=== PATIENT | male | born 1940 | race Caucasian/White ===

== ENCOUNTER 2018-08-30 13:09 | Inpatient (IN) | payer MEDICARE, OTHER ==
[2018-08-30 15:04] LABS: CKMB 3.9 ng/mL (0-6.6)
[2018-08-30] MEDS ORDERED: Digoxin 0.5 MG/2 ML AMP ONE (17:00)
[2018-08-30 17:57] LABS: Troponin I 0.047 ng/mL (< 0.028)
[2018-08-30] MEDS ORDERED: niCARdipine HCl 25 MG in Sodium Chloride 0.9% 250 ML 240 ML IVPB SCH (21:30)
[2018-08-30] MEDS ORDERED: Diltiazem HCl 125 MG, Admixture Fee 1 EACH in Sodium Chloride 0.9% 100 ML IVPB SCH (21:45)
--- NOTE | 2018-08-30 22:26 | HP ---
CHIEF COMPLAINT: Not feeling well. HISTORY OF PRESENT ILLNESS: The patient is a 78-year-old male with a history of atrial flutter with prior ablation, who subsequently had recurrence of atrial fibrillation. He is followed by Dr. Younger and the plan was for him to undergo outpatient ablation tomorrow. The patient was to taper off his Multaq, atenolol, and Eliquis in preparation. However, subsequently, the patient had recurrence of his atrial fibrillation, which he could tell because he just did not feel well and had some discomfort in his back, which has been typical for him. He says he feels generally better at this moment, does not have significant problems. He denies any chest pain or shortness of breath. Denies any fevers or chills. REVIEW OF SYSTEMS: All other systems were reviewed and all pertinent positives and negatives noted in history of present illness. PAST MEDICAL HISTORY: Coronary artery disease, atrial fibrillation, hyperlipidemia, hypertension, and CHF. PAST SURGICAL HISTORY: Atrial flutter ablation, carpal tunnel release on the right, appendectomy, CABG with one vessel bypass, and back surgery. FAMILY HISTORY: Father and mother both in their 90s of pneumonia. SOCIAL HISTORY: The patient has a history of smoking, but is reformed. He has 1 to 2 beers several times a week. ALLERGIES: NONE. MEDICATIONS: 1. Simvastatin 80 mg daily. 2. Atenolol 25 daily. 3. Eliquis 2.5 b.i.d. 4. Multaq 400 mg b.i.d. Of note, the Multaq, Eliquis, and atenolol have been held. PHYSICAL EXAMINATION: VITAL SIGNS: BP 130/98, pulse 123, respirations 17, O2 saturation 98% on room air. On monitor the patient's heart rate goes from 90s to 150s. GENERAL APPEARANCE: Age-appropriate male, in no distress. He is awake, alert, oriented, pleasant, and cooperative. HEART: Irregular with variable rates. Does have 1/6 murmur at the left sternal border. LUNGS: Clear to auscultation bilaterally with good chest wall expansion and air exchange. ABDOMEN: Soft, nontender, and nondistended. Positive bowel sounds. No masses. No organomegaly. EXTREMITIES: Warm and dry with 2+ pitting at the ankles only. NEUROLOGIC: The patient is fully intact, awake, moves all extremities spontaneously. He has normal sensation. PSYCHIATRIC: The patient has normal affect and behavior. LABORATORY DATA: White count 12.3, hemoglobin 13.3, and platelets 159. Sodium 137, potassium 4.5, chloride 107, CO2 of 19, BUN 24, creatinine 1.99, estimated GFR 33, glucose 130, lactic acid 1.5, calcium 9.3, AST is 21, ALT 15, troponin less than 0.01 x 2. Albumin is 3.9. TSH 2.4929. Chest x-ray, no evidence of acute cardiopulmonary disease. IMPRESSION AND PLAN: 1. Atrial fibrillation with rapid ventricular response. The patient had good control with Multaq and atenolol, but those have been discontinued in anticipation of ablation for tomorrow. We will add some digoxin for better rate control. Presently, he is tolerating it well and his blood pressure is remaining stable. We will place in IMCU on the Cardizem drip. We will consult Dr. Younger for possible ablation tomorrow. 2. Chronic kidney disease stage IIIB, appears to be stable at his baseline numbers. We will continue to trend. 3. Slight elevation of troponin, likely demand ischemia secondary to the tachycardia. We will continue to trend. 4. History of coronary artery disease, stable. 5. Hyperlipidemia. Continue with simvastatin. Job ID: [id number]
[2018-08-30] MEDS ORDERED: Diltiazem 125 MG in Sodium Chloride 0.9% 100 ML IVPB SCH (22:45)
[2018-08-31 00:35] VITALS: BMI 30.3
--- NOTE | 2018-08-31 12:12 | OP ---
DATE OF PROCEDURE: 08/31/2018 PROCEDURE PERFORMED: Electrophysiology study and radiofrequency ablation. ADDITIONAL REFERRING PHYSICIAN: Dr. Chelsea Baker. REASON FOR PROCEDURE: Jose is a 78-year-old male with prior history of coronary artery disease, bypass grafting, diabetes, hypertension, paroxysmal atrial fibrillation, history of typical atrial flutter, post CTI ablation in the past. He is here for re-ablation of his atrial arrhythmias, hence history of recurrence even on Multaq. DESCRIPTION OF PROCEDURE: The patient received propofol by Anesthesia specialist. After adequate level of sedation achieved, the left and right femoral veins were prepped, draped, and anesthetized using subcutaneous lidocaine and under ultrasound guidance, both femoral veins were cannulated x2 on the left. An 11-[place]an sheath was used to advance an intracardiac echo probe, which was used to monitor transseptal procedure and to rule out pericardial effusion throughout the case. Also through the left access, a Preface sheath was advanced to the inferior vena cava, which was used later to advance a DuoDeca probe into the right atrium and CS position. On the right side, two 8-[place]an short sheaths were introduced. Initially, a ThermoCool SFST catheter was advanced to the right atrium. Right atrial map was obtained, and basic EP study was performed. The His bundle, CS os, SVC IVC areas, and cavotricuspid isthmus were well delineated. Following numerical findings were found. Basic sinus rhythm at 1093 milliseconds, NC 180, QRS 74, QT 438, AH 94 milliseconds, HV 54 milliseconds. AV Wenckebach cycle length was 380 milliseconds. Burst atrial pacing initially did not induce flutter, but at later time after ablation, we were able to induce typical isthmus dependent appearing flutter. At this point, remapping of the cavotricuspid isthmus was performed during proximal CS pacing and a reconnection was re-ablated. The transisthmus time was increased to 140 milliseconds with longest transisthmus time was adjacent to the ablation line suggestive of cavotricuspid isthmus block. At this point, the ThermoCool SFST catheter was removed and the short sheaths were exchanged to SL1 transseptal sheaths. They were used to perform transseptal punctures under cine/intracardiac echo monitoring. IV heparin was started at this point to maintain ACT over 350 throughout the case. Through the SL1 sheath, a 20-pole deflectable Lasso catheter and a ThermoCool SFST catheter were advanced to the left atrium. Left atrial 3D map was obtained, and pulmonary venous isolation procedure was performed successfully isolating all 4 pulmonary veins. The posterior wall also isolated. Throughout the case, an esophageal temperature probe was used to monitor esophagus temperatures to avoid excessive heating. With burst atrial pacing maneuvers elicited atypical appearing atrial flutters, but they were shortly self-terminated. The Isuprel was administered, and reconnections were ablated. The total ablation was 33, lesions delivered over 16 minutes and 4 seconds at 40 briggs. Intracardiac echo and cardiac silhouette were not suggestive of significant pericardial effusion. The sheaths were pulled to the right side, and the cavotricuspid isthmus line was again rechecked, and reconnection was re-ablated. At this point, the sheaths were removed in the cardiac cath technologist. The heparin was reversed, and the patient tolerated the procedure well. No complications noted. CONCLUSION: 1. Successful pulmonary venous isolation procedure isolating the posterior wall of all 4 pulmonary veins. 2. Successful re-ablation of the cavotricuspid isthmus. PLAN: Routine postop care. Resume anticoagulants. Stop Multaq and monitor for recurrent arrhythmias. Job ID: [id number] [facility]
[2018-08-31] MEDS ORDERED: Acetaminophen/Codeine 30-300mg Tablet PO PRN ×2 (13:15)
--- NOTE | 2018-08-31 15:42 | CON ---
DATE OF CONSULTATION: 08/31/2018 HISTORY OF PRESENT ILLNESS: I am seeing Mr. Garcia at our [facility] Step-down ICU as an Electrophysiology technology consultant. His problems are; 1. Recurrent atrial arrhythmias. a. Remote history of cavotricuspid isthmus ablation on August 30, 2015, for typical atrial flutter. b. Recurrent atrial flutter requiring Multaq suppression. 2. History of coronary artery disease, prior bypass grafting surgery. a. History of preserved LVEF by 2D echo on 02/28/2016, EF 55% to 60%, mild MR and TR, diastolic dysfunction. 3. History of chronic kidney disease. 4. History of lymphoma. 5. History of chronic back pain status post back surgery. 6. History of hypertension. 7. History of type 2 diabetes. 8. Hyperlipidemia. 9. CHADS-VASc score of 5 with age, hypertension, diabetes, and coronary vascular disease on Eliquis therapy. ALLERGIES: NONE. MEDICATIONS: At home include; 1. Multaq 400 mg twice a day, now on hold for a week. 2. Eliquis 5 mg twice a day. 3. Amlodipine 5 mg daily. 4. Atenolol 50 mg twice a day. 5. Simvastatin 80 mg daily. 6. Aspirin 81 mg daily. SUBJECTIVE: Mr. Garcia is here with recurrent palpitations. They started about 2 days back. He has been off his Multaq for a while. His heart rates were elevated and hence, he came to the ER. He is on diltiazem drip. He is feeling better now. His rhythm actually spontaneously converted back to sinus rhythm. OBJECTIVE DATA: VITAL SIGNS: Blood pressure 143/69, heart rate 93, respirations 12, and temperature 98.9 degrees Fahrenheit. PHYSICAL EXAMINATION: GENERAL: Alert and oriented man, in no apparent distress. NECK: Supple. Jugular veins not distended. CHEST: Coarse without crackles. HEART: Sounds are regular to rate and rhythm. No murmur or gallop. ABDOMEN: Benign. Bowel sounds positive. EXTREMITIES: Lower extremities without edema, clubbing, or cyanosis. Midsternal scar is appreciated. NEUROLOGIC: The patient is nonfocal. MUSCULOSKELETAL: Without joint swelling or deformity. SKIN: Without rash. DATABASE: EKG is reviewed revealing an atrial flutter with typical features, but also atypical features as well, 2:1 AV conduction. LABORATORY DATA: White cell count is 12.3, hemoglobin 13.3, and platelet count are 159. INR 1.0 and D-dimer 1.24. Sodium 137, potassium 4.8, BUN is 26, and creatinine 1.99. The AST and ALT are 25 and 15. Troponin I 0.07. ASSESSMENT AND PLAN: Mr. Garcia is a 78-year-old man with prior history of coronary artery disease, bypass surgery, preserved LV function, recurrent atrial arrhythmias, had prior flutter ablation by Dr. Meng, but now has recurrent somewhat typical appearing atrial flutter, previously suboptimally suppressed with Multaq. I have seen this gentleman in the office for evaluation, further ablated arrhythmias. In fact, he is scheduled to have this procedure done as an outpatient by our plans today. Now, he had recurrent atrial arrhythmias, likely related to holding antiarrhythmic regimen prior to the ablation. I think it is reasonable to consider proceeding with the ablation therapy as ordered. Plan, we will schedule him as planned. We will follow with you. Thank you again for allowing me to participate in the care of this patient. Job ID: [id number]
[2018-08-31] MEDS ORDERED: Metoclopramide HCl 10 MG/2 ML VIAL ONE (17:03)
[2018-08-31] MEDS ORDERED: Ondansetron PF 4 MG/2 ML Vial ONE (17:03)
[2018-08-31] MEDS ORDERED: Lidocaine 1% PF 5 ML VIAL ONE (17:03)
[2018-08-31] MEDS ORDERED: PROPOFOL 200 MG/20 ML VIAL ONE (17:03)
[2018-08-31] MEDS ORDERED: Rocuronium Bromide 10 MG/ML (10ML VIAL) ONE (17:03)
[2018-08-31] MEDS ORDERED: PHENYLEPHRINE-NS 100 MCG/ML 10 ML SYRINGE ONE (17:03)
[2018-08-31] MEDS: Apixaban 5 MG TAB PO SCH (18:17)
--- NOTE | 2018-08-31 18:43 | PDOC.PN ---
- Subjective Encounter Start Date: 08/31/18 Encounter Start Time: 18:41 Subjective: S/p repeat ablation for atrial fib/flutter recurrence. Feeling better. -: Denied any new problem - Objective Vital Signs & Weight: Vital Signs (12 hours) Temp Resp 08/31/18 16:00 97.7 F 08/31/18 12:49 97.2 F L 08/31/18 08:00 12 08/31/18 07:20 98.9 F Weight Weight 211 lb 3.2 oz Most Recent Monitor Data Heart Rate from ECG 89 NIBP 166/73 NIBP BP-Mean 104 Respiration from ECG 19 SpO2 92 I&O: 08/30/18 08/31/18 09/01/18 06:59 06:59 06:59 Intake Total 24.5 Output Total 450 Balance -425.5 Phys Exam - Physical Examination HEENT: PERRLA, moist MMs Neck: no JVD, supple, full ROM fair air entry bilaterally with no obvious crackles or rhonchi Regular rhythm but tachycardic Gastrointestinal: soft, non-tender, no distention, positive bowel sounds Musculoskeletal: no edema, pulses present Neurological: non-focal, moves all 4 limbs Psychiatric: normal affect, A&O x 3 Dx/Plan (1) Generalized weakness Code(s): R53.1 - WEAKNESS Status: Acute (2) CAD (coronary artery disease) Code(s): I25.10 - ATHSCL HEART DISEASE OF [place] CORONARY ARTERY W/O ANG PCTRS Status: Acute (3) Paroxysmal atrial fibrillation with RVR Code(s): I48.0 - PAROXYSMAL ATRIAL FIBRILLATION Status: Acute (4) HTN (hypertension) Code(s): I10 - ESSENTIAL (PRIMARY) HYPERTENSION Status: Acute (5) Atrial fibrillation Code(s): I48.91 - UNSPECIFIED ATRIAL FIBRILLATION Status: Acute - Plan Continue beta kathryn and chronic anticoagulation -: Get CBC and BMP in the am. * .
--- NOTE | 2018-08-31 20:46 | EKG ---
Test Reason : POST ABLATION Blood Pressure : / mmHG Vent. Rate : 072 BPM Atrial Rate : 072 BPM P-R Int : 182 ms QRS Dur : 092 ms QT Int : 424 ms P-R-T Axes : 062 049 126 degrees QTc Int : 464 ms Normal sinus rhythm Prolonged QT Abnormal ECG When compared with ECG of 30-AUG-2018 22:26, (Unconfirmed) QT has lengthened Confirmed by DR. Estephania CHANEL ([id number]) on 08/31/2018 8:45:39 PM Referred By: LATONIA Confirmed By:DR. Estephania CHANEL
[2018-08-31] MEDS ORDERED: Atorvastatin Calcium 40 MG TAB PO SCH (21:00)
[2018-09-01 05:58] LABS: #Basophils 0.1 thou/uL (0.0-0.2); #Eosinphils 0.3 thou/uL (0.0-0.7); #Monocytes 1.2 thou/uL (0.11-0.59); #Neutrophils 6.7 thou/uL (1.40-6.50); %Basophils 0.6 % (0.0-1.0); %Eosinophils 2.2 % (0.0-10.0); %Lymphocytes 37.8 % (21.0-51.0); %Monocytes 9.1 % (0.0-10.0); %Neutrophils 50.4 % (42.0-75.0); Hemoglobin 11.9 g/dL (14.0-18.0); Mean Corpuscular HGB CONC 29.6 g/dL (32.0-36.0); Mean Corpuscular Hemoglobin 26.2 pg (27.0-31.0); Mean Corpuscular Volume 88.4 fL (78.0-98.0); Mean Platelet Volume 7.5 fL (7.4-10.4); Platelet Count 171 thou/uL (130-400); RBC Distribution Width 13.5 % (11.5-14.5); Red Blood Cell (RBC) Count 4.55 mill/uL (4.70-6.10); White Blood Cell (WBC) Count 13.4 thou/uL (4.8-10.8)
[2018-09-01 06:07] LABS: Anion Gap 9 mmol/L (10-20); BUN (Urea Nitrogen) 19 mg/dL (8.4-25.7); Calc. Creatinine Clearance 53 mL/min (70-130); Calcium 8.4 mg/dL (7.8-10.44); Carbon Dioxide 24 mmol/L (23-31); Chloride 107 mmol/L (98-107); Estimated GFR-MDRD 42; Glucose 123 mg/dL (83-110); Magnesium 1.7 mg/dL (1.6-2.6); Potassium 4.3 mmol/L (3.5-5.1); Sodium 136 mmol/L (136-145)
[2018-09-01] MEDS ORDERED: Aspirin 81 mg Enteric Coated Tablet PO SCH (09:00)
[2018-09-01] MEDS ORDERED: Atenolol 25 MG TAB PO SCH (09:00)
[2018-09-01] MEDS ORDERED: Magnesium 2 GM/50 ML 2 GM in Premix Bag 1 BAG IVPB SCH (09:00)
[2018-09-01] MEDS: Apixaban 5 MG TAB PO SCH (09:15)
[2018-09-01] MEDS ORDERED: Amlodipine 5 MG TAB PO SCH (09:30)
[2018-09-01 10:40] VITALS: BP 153/69
[2018-09-01 15:24] VITALS: TEMP 99
--- NOTE | 2018-09-01 18:13 | DIS ---
DATE OF ADMISSION: 08/30/2018 DATE OF DISCHARGE: 09/01/2018 DISCHARGE DIAGNOSES: 1. Recurrent atrial arrhythmias. 2. Palpitations. 3. Coronary artery disease, status post coronary artery bypass grafting. 4. Chronic kidney disease, stage 3. 5. Hypertension. 6. Type 2 diabetes mellitus. 7. Hyperlipidemia. 8. Chronic anticoagulation with Eliquis. CONSULT: Cupola Worker. HOSPITAL COURSE: This is a 78-year-old male with prior history of atrial flutter, status post ablation, who presented with acute onset of palpitations and ill feeling. The patient was found to have atrial fibrillation. Cupola Worker was consulted and the patient subsequently had successful ablation. Postprocedure observation was unremarkable and the patient remained in normal sinus rhythm. He was later discharged home to follow up with the continuing education instructor. He also complained of heartburn, for which he was prescribed antiacids. Of note, Multaq was discontinued and the patient was continued on atenolol. PHYSICAL EXAMINATION: VITAL SIGNS: Temperature 99, pulse 79, respiratory rate 23, BP 155/66, SpO2 of 95% on room air. GENERAL: Elderly male, in no obvious distress. Afebrile, anicteric, acyanotic. HEENT: Normocephalic, atraumatic. Oral mucosa is moist. RESPIRATORY: Good air entry bilaterally with no obvious crackle or rhonchi. CARDIOVASCULAR: Regular rhythm and rate with normal heart sounds one and two. GI: Abdomen is obese, soft, nontender, nondistended with normal bowel sounds. EXTREMITIES: Grossly normal looking and atraumatic with no edema or erythema. NEUROLOGIC: Conscious and alert, oriented x3 with appropriate mental status. Cranial nerves 2 through 12 are intact. The patient is ambulant. DISCHARGE MEDICATIONS: 1. Amlodipine 5 mg daily. 2. Eliquis 5 mg b.i.d. 3. Aspirin 81 mg daily. 4. Simvastatin 80 mg daily. 5. Atenolol 25 mg b.i.d. 6. Protonix 40 mg daily. 7. Sucralfate 1 tablet q.i.d. for 14 days. CONDITION AT DISCHARGE: Good. This discharge took more than 30 minutes. Job ID: [id number]
[2018-09-02] MEDS ORDERED: Amlodipine 5 MG TAB PO SCH (09:00)
== END 2018-09-01 15:40 | disposition home or self-care (01) | DRG 274 ==
LOC: ERS 13:09 → ERHOLD 20:46 → IMCU/EMU 23:30
PROVIDERS: ADMIT Internal Medicine; ATTEND Internal Medicine
PROC: 02583ZZ Destruction of Conduction Mechanism, Percutaneous Approach (ICD-10-PCS; principal; 2018-08-31)
DX: I48.0 Paroxysmal atrial fibrillation (principal); N18.3 Chronic kidney disease, stage 3 (moderate); I25.10 Atherosclerotic heart disease of native coronary artery without angina pectoris; E78.5 Hyperlipidemia, unspecified; I12.9 Hypertensive chronic kidney disease with stage 1 through stage 4 chronic kidney disease, or unspecified chronic kidney disease; E11.22 Type 2 diabetes mellitus with diabetic chronic kidney disease; Z85.72 Personal history of non-Hodgkin lymphomas; Z95.1 Presence of aortocoronary bypass graft; Z79.01 Long term (current) use of anticoagulants
CPT/HCPCS: 36415; 76942; 80048; 82553; 83735; 85025; 85347; 93005; 93010; 93613; 93622; 93623; 93655; 93656; 93662; 94760; 96365; 96375; C1730; C1731; C1732; C1759; C1769; J1160; J2001; J2405; J2704; J2765; J3475; J7050

== ENCOUNTER 2018-10-21 19:36 | Inpatient (IN) | payer MEDICARE, OTHER ==
[2018-10-21] MEDS ORDERED: Digoxin 0.5 MG/2 ML AMP ONE (21:21)
[2018-10-21] MEDS ORDERED: Ondansetron PF 4 MG/2 ML Vial IVP PRN ×2 (22:26→22:30)
[2018-10-21] MEDS ORDERED: Ondansetron ODT 4 MG TAB SL PRN (22:26)
[2018-10-21] MEDS ORDERED: Calcium Carbonate 500 MG ChewTAB PO PRN (22:30)
[2018-10-21] MEDS ORDERED: Bisacodyl 10 MG SUPP PR PRN (22:30)
[2018-10-21] MEDS ORDERED: Ondansetron ODT 4 MG TAB PO PRN (22:30)
[2018-10-21] MEDS ORDERED: Bisacodyl 5 MG TAB PO PRN (22:30)
[2018-10-21] MEDS ORDERED: Zolpidem Tartrate 5 MG TAB PO PRN (22:30)
[2018-10-21] MEDS ORDERED: HYDROcodone/Acetaminophen 5/325 mg Tablet PO PRN (22:30)
[2018-10-21] MEDS ORDERED: Loperamide HCl 2 MG CAP PO PRN (22:30)
[2018-10-21] MEDS ORDERED: Acetaminophen 325 MG TAB PO PRN (22:30)
[2018-10-21] MEDS ORDERED: Diltiazem 125 MG in Sodium Chloride 0.9% 100 ML IVPB SCH (22:45)
--- NOTE | 2018-10-21 22:54 | HP ---
PRIMARY CARE PHYSICIAN: Dr. Ly. REASON FOR ADMISSION: Transferred from [facility] for atrial fibrillation with RVR. HISTORY OF PRESENT ILLNESS: A 78-year-old male who was admitted in our hospital in August of this year. At that time, he was diagnosed with atrial fibrillation with RVR and the patient underwent electrophysiologic study and radiofrequency ablation for atrial fibrillation. Since then up until today, the patient did not have any problem. He went to [facility] today with palpitation and feeling mild shortness of breath. He did not have any chest pain, orthopnea, or PND. He was in atrial fibrillation with RVR and that is why Cardizem drip was started. His heart rate remained in 130s and that is why he was sent to our hospital for further evaluation and treatment. Subsequently, he was admitted to [facility]. He denies any fever, chills, UTI symptoms, hyperthyroid symptoms. He denies any constipation, diarrhea, melena, or hematochezia. REVIEW OF SYSTEMS: CONSTITUTIONAL: Negative for weight loss or gain, ability to conduct usual activities. SKIN: Negative for rash, itching. EYES: Negative for double vision, pain. ENT/MOUTH: Negative for nose bleeding, neck stiffness, pain, tenderness. CARDIOVASCULAR: Negative for palpitations, dyspnea on exertion, orthopnea. RESPIRATORY: Negative for shortness of breath, wheezing, cough, hemoptysis, fever or night sweats. GASTROINTESTINAL: Negative for poor appetite, abdominal pain, heartburn, nausea, vomiting, constipation, or diarrhea. GENITOURINARY: Negative for urgency, frequency, dysuria, nocturia. MUSCULOSKELETAL: Negative for pain, swelling. NEUROLOGIC/PSYCHIATRIC: Negative for anxiety, depression. ALLERGY/IMMUNOLOGIC: Negative for skin rash, bleeding tendency. Please see my HPI for pertinent positives and negatives. All other review of systems reviewed and negative except as mentioned in HPI. PAST MEDICAL HISTORY: Coronary artery disease, chronic diastolic heart failure, atrial fibrillation, hypertension, and dyslipidemia. PAST SURGICAL HISTORY: Atrial flutter ablation, atrial fibrillation ablation, carpal tunnel release on the right, appendicectomy, CABG, back surgery. PAST PSYCHIATRIC HISTORY: Reviewed and negative. CURRENT HOME MEDICATIONS: 1. Amlodipine 5 mg daily. 2. Aspirin 81 mg daily. 3. Zocor 80 mg p.o. at bedtime. 4. Eliquis 5 mg b.i.d. 5. Tenormin 25 mg b.i.d. 6. Protonix 40 mg daily. 7. Sucralfate 1 g q.i.d. FAMILY HISTORY: Father and mother both in their 90s from pneumonia. SOCIAL HISTORY: The patient is . He has remote history of smoking. He drinks beer occasionally. ALLERGIES: NO KNOWN DRUG ALLERGY. EMERGENCY ROOM COURSE: The patient is started on Cardizem drip. PHYSICAL EXAMINATION: VITAL SIGNS: Currently, blood pressure 132/95, pulse 136, respiratory rate 20, temperature 98.0, saturation 100% on room air. Weight 97 kg. GENERAL: The patient is currently alert and oriented x3. No obvious acute distress. HEENT: Head; normocephalic, atraumatic. Eyes; pupils round, reactive to light. Extraocular muscle intact. ENT: Oropharynx within normal limits. Moist mucous membranes. No oral lesion. No pharyngeal erythema. No exudate. NECK: Supple. No JVD. No thyromegaly. No carotid bruit. No jugular venous distention. LUNGS: Clear to auscultation without any rhonchi or rales. CARDIAC: S1 and S2, irregularly irregular. No murmur. No gallop. No rub. ABDOMEN: Obesity present. Bowel sounds present. Nontender. Nondistended. No organomegaly. No mass. No suprapubic tenderness. BACK: Unremarkable. No CVA tenderness. EXTREMITIES: Upper extremities, passive movement of all joints are normal. Lower extremities, no edema. Good distal pulsation. SKIN: No skin rash. HEMATOLOGICAL SYSTEM: No lymphadenopathy. PSYCHIATRIC: Normal affect. SIGNIFICANT LABORATORY DATA: Chest x-ray based on my review, increased density at the right base, atelectasis. CBC; WBC 13.0, hemoglobin 13.8, platelet 195. BMP; sodium 132, potassium 4.2, chloride 102, carbon dioxide 17, BUN 29, creatinine 1.80, glucose 137, calcium 9.1. LFTs; AST 20, ALT 12, alkaline phosphatase 183, albumin 3.9. Troponin 0.066, then 0.120. BNP 536.5. EKG showing atrial fibrillation with RVR. ASSESSMENT AND PLAN: 1. Atrial fibrillation with rapid ventricular response. The patient has chronic paroxysmal atrial fibrillation. He required ablation procedure last time. We will continue with Cardizem drip for rate control and consult pressfitter tomorrow. We will obtain echocardiography to assess EF and other structural abnormality. 2. Elevated troponin. The patient had elevated troponin during previous admission as well, most likely related to demand ischemia from atrial fibrillation with rapid ventricular response, could be considered as a non-ST elevation myocardial infarction type 2. An echocardiography will be obtained and we will continue with aspirin 81 mg p.o. daily. 3. Chronic anticoagulation. The patient has high CHADS2 score. We will continue Eliquis 5 mg p.o. b.i.d. 4. Hypertension. If blood pressure permits, then we will continue amlodipine 5 mg p.o. daily. Currently, he is on Cardizem drip as well. 5. Chronic kidney disease, stage 3. We will monitor renal function. Repeat labs tomorrow. 6. Chronic diastolic heart failure. The patient appears currently euvolemic. 7. Right basilar atelectasis. Incentive spirometry advised. 8. Deep venous thrombosis prophylaxis not needed because the patient will be on chronic anticoagulation therapy. 9. GI prophylaxis, Protonix 40 mg p.o. daily. 10. Code status. The patient is full code. The patient's is surrogate decision maker. 11. Dyslipidemia. Continue Zocor as per home dosage. Plan of care discussed with the patient and family member at bedside. Job ID: [id number]
[2018-10-22 00:47] LABS: Troponin I 0.131 ng/mL (< 0.028)
[2018-10-22 05:02] LABS: Anion Gap 13 mmol/L (10-20); BUN (Urea Nitrogen) 28 mg/dL (8.4-25.7); Calc. Creatinine Clearance 46 mL/min (70-130); Carbon Dioxide 21 mmol/L (23-31); Chloride 107 mmol/L (98-107); Estimated GFR-MDRD 37; Glucose 102 mg/dL (83-110); Potassium 4.4 mmol/L (3.5-5.1); Sodium 137 mmol/L (136-145)
[2018-10-22 05:05] LABS: Band 1 % (5-11); Eosinophils 4 % (0-10); Hemoglobin 13.4 g/dL (14.0-18.0); Lymphocytes 49 % (21-51); MDiff Complete? YES; Mean Corpuscular Hemoglobin 28.3 pg (27.0-31.0); Mean Corpuscular Volume 88.4 fL (78.0-98.0); Mean Platelet Volume 7.9 fL (7.4-10.4); Monocytes 6 % (0-10); Neutrophil 36 % (42-75); Platelet Count 181 thou/uL (130-400); RBC Distribution Width 13.6 % (11.5-14.5); Reactive Lymphocytes 4 % (0-10); Red Blood Cell (RBC) Count 4.74 mill/uL (4.70-6.10); White Blood Cell (WBC) Count 11.7 thou/uL (4.8-10.8)
[2018-10-22] MEDS: Apixaban 5 MG TAB PO SCH ×2 (09:47→21:08)
[2018-10-22] MEDS: Aspirin Chewable 81 MG TAB PO SCH (09:47)
[2018-10-22] MEDS: Dronedarone HCl 400 MG TAB PO SCH ×2 (09:51→21:08)
[2018-10-22] MEDS ORDERED: Lidocaine 1% PF 5 ML VIAL ONE (14:53)
[2018-10-22] MEDS ORDERED: PROPOFOL 200 MG/20 ML VIAL ONE (14:53)
--- NOTE | 2018-10-22 17:08 | OP ---
DATE OF PROCEDURE: 10/22/09 SURGEON: Chelsea Baker M.D. PROCEDURE: Cardioversion DATE OF PROCEDURE: 09/01/18 INDICATION FOR PROCEDURE: This is a 78-year-old gentleman who is admitted with atrial flutter with a rapid ventricular response . Heart rate was in the 140s to 150s. He was advised to undergo electrical cardioversion. He had been started on Multaq this morning 400 mg b.i.d. He was on IV Diltiazem. The Diltiazem was stopped. CARDIOVERSION The patient was given short acting propofol anesthesia and using one attempt at 70 joules, the patien t was successfully converted back to normal sinus rhythm with a heart rate in the 60s. He had been ta [facility] for some time prior to the procedure and no LORRAINE was performed. No difficulties or compli cations encountered.
--- NOTE | 2018-10-22 19:02 | PDOC.PN ---
- Subjective Encounter Start Date: 10/22/18 Encounter Start Time: 09:20 Pt seen for followup re: a. fib with RVR. Denies chest pain, shortness of breath, fevers or chills. - Objective Resuscitation Status - Order Detail: 10/21/18 22:30 Resuscitation Status Routine Resuscitation Status: FULL: Full Resuscitation Vital Signs & Weight: Vital Signs (12 hours) Temp Pulse Pulse Ox 10/22/18 15:23 96.5 F L 10/22/18 10:37 98.7 F 10/22/18 10:00 144 H 10/22/18 09:40 100 Weight Weight 207 lb Most Recent Monitor Data Heart Rate from ECG 67 NIBP 141/58 NIBP BP-Mean 85 Respiration from ECG 18 SpO2 99 I&O: 10/21/18 10/22/18 10/23/18 06:59 06:59 06:59 Intake Total 240 Output Total 1400 Balance -1160 Result Diagrams: 10/22/18 04:02 10/22/18 04:02 Phys Exam - Physical Examination Constitutional: NAD HEENT: moist MMs Neck: supple Respiratory: clear to auscultation bilateral Cardiovascular: irregular S1, S2, tachy Gastrointestinal: soft, non-tender Neurological: moves all 4 limbs Psychiatric: normal affect, A&O x 3 Dx/Plan (1) Paroxysmal atrial fibrillation with RVR Code(s): I48.0 - PAROXYSMAL ATRIAL FIBRILLATION Status: Acute Comment: For cardioversion today (2) HTN (hypertension) Code(s): I10 - ESSENTIAL (PRIMARY) HYPERTENSION Status: Chronic Comment: controlled (3) Dyslipidemia Code(s): E78.5 - HYPERLIPIDEMIA, UNSPECIFIED Status: Chronic Comment: continue statin - Plan * . Review of Systems - Review of Systems Cardiovascular: negative: chest pain, palpitations, orthopnea, paroxysmal nocturnal dyspnea, edema, light headedness Gastrointestinal: negative: Nausea, Vomiting, Abdominal Pain, Diarrhea, Constipation, Melena, Hematochezia - Medications/Allergies Allergies/Adverse Reactions: Allergies Allergy/AdvReac Type Severity Reaction Status Date / Time No Known Drug Allergies Allergy Verified 10/22/18 02:43 Medications: Current Medications Acetaminophen (Tylenol) 650 mg PO Q4H PRN PRN Reason: Headache/Fever/Mild Pain (1-3) Hydrocodone Bitart/Acetaminophen ([place] 5/325) 1 tab PO Q4H PRN PRN Reason: Moderate Pain (4-6) Apixaban (Eliquis) 5 mg PO BID [facility] Last Admin: 10/22/18 09:47 Dose: 5 mg Aspirin (Aspirin Chewable) 81 mg PO DAILY [facility] Last Admin: 10/22/18 09:47 Dose: 81 mg Atorvastatin Calcium (Lipitor) 40 mg PO HS [facility] Bisacodyl (Dulcolax) 10 mg [place] DAILYPRN PRN PRN Reason: Constipation Bisacodyl (Dulcolax) 10 mg PO DAILYPRN PRN PRN Reason: Constipation Calcium Carbonate (Tums) 1,000 mg PO Q4H PRN PRN Reason: Heartburn or Indigestion Dronedarone (Multaq) 400 mg PO BID [facility] Last Admin: 10/22/18 09:51 Dose: 400 mg Loperamide HCl (Imodium) 2 mg PO PRN PRN PRN Reason: Diarrhea/Loose Stools Ondansetron HCl (Zofran Odt) 4 mg PO Q6H PRN PRN Reason: Nausea/Vomiting Ondansetron HCl (Zofran) 4 mg IVP Q6H PRN PRN Reason: Nausea/Vomiting Zolpidem Tartrate (Ambien) 5 mg PO HSPRN PRN PRN Reason: Insomnia
[2018-10-22] MEDS ORDERED: Atorvastatin Calcium 40 MG TAB PO SCH (21:00)
--- NOTE | 2018-10-22 22:36 | CON ---
DATE OF CONSULTATION: 10/22/2018 ADDITIONAL REFERRING PHYSICIAN: Rashi Wilson MD. HISTORY OF PRESENT ILLNESS: I am seeing Mr. 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 His problems are: 1. Newly found atypical atrial flutter. 2. Paroxysmal atrial fibrillation and flutter. a. Status post pulmonary venous isolation procedure. Posterior wall pulmonary veins and re-ablation of CT isthmus on August 31, 2018. 3. Prior history of Multaq use and cardioversion. 4. History of coronary artery disease with prior coronary bypass grafting surgery. a. A 2D echo in the past reveals normal LVEF, mild MR and TR. 5. History of chronic disease. BUN is 20 and creatinine 1.79 today. 6. History of lymphoma. 7. Hypertension. 8. Hyperlipidemia. 9. Oral anticoagulation, Eliquis. ALLERGIES: NONE NOTED. MEDICATIONS: At home included: 1. Simvastatin. 2. Amlodipine. 3. Apixaban 5 mg twice a day. 4. Aspirin. 5. Pantoprazole. 6. Sucralfate. 7. Atenolol. SUBJECTIVE: Mr. Garcia is referred here to our ER with recurrent palpitations. This has been the first palpitations since his ablation. He had no dizziness of unconsciousness. No stroke-like symptoms. No neurological deficits. No fever, chills, cough, PND, or orthopnea. No other angina-like discomfort. Rest of 12-point system otherwise unremarkable. PAST MEDICAL HISTORY: As above. SOCIAL HISTORY: Patient has no smoking, EtOH, or drug abuse. FAMILY HISTORY: Not contributory. OBJECTIVE: VITAL SIGNS: Blood pressure is 155/77, heart rate 103, respirations 12. The patient is afebrile, temperature 96.5 degrees Fahrenheit. GENERAL: This is an alert and oriented man, in no apparent distress. NECK: Supple. Jugular veins not distended. CHEST: Coarse with crackles. HEART: Sounds are irregular. S1 and S2 variable. No murmur or gallop. ABDOMEN: Benign. Bowel sounds positive. EXTREMITIES: Lower extremities with no edema, clubbing, or cyanosis. Pulses are adequate. NEUROLOGIC: The patient is nonfocal. MUSCULOSKELETAL: Without joint deformity. SKIN: Without rash. LABORATORY DATA: Reveals sodium of 137, potassium 4.4, BUN 28 and creatinine 1.79. Troponin 0.1 to 0.13. White blood cell count 11.7, hemoglobin 13.4, platelet count is 181. EKG from last night reveals an atypical atrial flutter, rates 116 beats per minute. ASSESSMENT AND PLAN: Mr. Garcia is a pleasant 78-year-old gentleman with prior history of atrial arrhythmias, recent left and right atrial ablation on August 31, who has maintained sinus rhythm, sent off on Multaq. Now, he has recurrence of an atypical atrial flutter. It was different from his prior morphologies. He continues to be well anticoagulated. We discussed treatment options. Hence, a recent ablation he is still in the timeframe of early atrial arrhtyhmias, which may not determine his senior living prognosis. Multaq is still would be reasonable for a duration of 3 months postablation. Cardioversion will be performed after the Multaq is initiated. Once that is complete, he likely should be able to go home. We will follow up with him as scheduled. In the meantime, continued anticoagulation is advised and adjust heart rate-controlling agents like Multaq versus beta-blockers as necessary. Routine followup as planned in 6 weeks. This is already arranged. We will discuss the option for cardioversion with Dr. Baker who may proceed with the procedure this afternoon. Job ID: [id number] [facility]
[2018-10-23 07:16] VITALS: TEMP 98.4
[2018-10-23] MEDS: Dronedarone HCl 400 MG TAB PO SCH (09:38)
[2018-10-23] MEDS: Aspirin Chewable 81 MG TAB PO SCH (09:39)
[2018-10-23] MEDS: Apixaban 5 MG TAB PO SCH (09:39)
--- NOTE | 2018-10-23 10:56 | PDOC.CTH ---
Cardiology Progress Note - Subjective EP PROGRESS NOTE: 10/23/18 Seen as follow atrial flutter, early recurrence following recent PVAI. Feeling well after CV on 10/[address] Baker. No further heart racing or palpitations. Denies chest pain/pressure, dizziness, passing out, or bleeding issues on Eliquis. Dc later today - Objective Vital Signs Temp Pulse Ox 10/23/18 10:42 98.4 F 10/23/18 08:00 97 10/23/18 07:16 98.4 F 10/23/18 03:53 98.8 F 10/23/18 00:00 98.4 F Weight 207 lb 10/22/18 10/23/18 10/24/18 06:59 06:59 06:59 Intake Total 240 250 Output Total 1400 600 Balance -1160 -350 - Physical Examination General/Neuro: alert & oriented x3, NAD Neck: carotid US brisk, no JVD present Lungs: CTA, unlabored respirations Heart: PMI normal, RRR Abdomen: NT/ND, soft - Telemetry Telemetry Rhythm: SR - Labs Result Diagrams: 10/22/18 04:02 10/22/18 04:02 Troponin/CKMB Troponin I 0.131 ng/mL (< 0.028) H 10/21/18 23:58 - Assessment/Plan 1. Atypical atrial flutter -early recurrence of atrial arrhythmias during acute recovery from PVI on 05/11. New flutter morphology since ablation. -s/p CV on 10/22/18 -Started on Multaq before CV - currently in SR 2. CHADS2-VASC: >2 - need for continued OAC for AFL and with recent ablation - Continue eliquis Continue Eliquis and multaq upon DC. Will arrange follow up with [facility] in 6 weeks. OK for DC by EP
--- NOTE | 2018-10-23 12:02 | PDOC.EVN ---
Event Note - Event Note Event Note: DC SUMMARY #[id number]
--- NOTE | 2018-10-24 02:19 | DIS ---
DATE OF ADMISSION: 10/21/2018 DATE OF DISCHARGE: 10/23/2018 ADMITTING DIAGNOSES: Flutter, atrial fibrillation uncontrolled, hyperlipidemia, and hypertension. DISCHARGE DIAGNOSES: Atrial flutter status post cardioversion, hypertension, hyperlipidemia, chest discomfort resolved. HOSPITAL COURSE: This is a 78-year-old male, admitted to Internal Medicine team also followed very closely by EP and Cardiology due to atrial flutter. The patient was started on a Cardizem drip, which did not control the patient's atrial flutter. He was started on antidysrhythmics as well, which did not control his atrial flutter. After discussion between Cardiology and EP, a decision was made to cardiovert the patient. The patient was taken to the cardiac catheterization technician and cardioverted. The patient was stable at the time of discharge, back to normal sinus rhythm, was given amiodarone as well as anticoagulation upon the time of discharge. Follow up with EP and Cardiology within 1 to 2 weeks. The patient's admission was stable. Case and plan discussed with the patient and son at length. They understood and agreed with this plan. DISPOSITION: Home. FOLLOWUP: Follow up with PCP and Cardio within 1 to 2 weeks. MEDICATIONS: See MAR. ACTIVITY: As tolerated with assistance as needed. DIET: Low-fat, low-calorie, high-fiber diet. CONDITION: Stable. PROGNOSIS: Good. Case and plan again were discussed with the patient at length. They understood and agreed with this plan. Job ID: [id number]
== END 2018-10-23 15:00 | disposition home or self-care (01) | DRG 281 ==
LOC: ERS 19:36 → IMCU/EMU 22:12
PROVIDERS: ADMIT Internal Medicine; ATTEND Internal Medicine
PROC: 5A2204Z Restoration of Cardiac Rhythm, Single (ICD-10-PCS; principal; 2018-10-22)
DX: I48.0 Paroxysmal atrial fibrillation (principal); I21.4 Non-ST elevation (NSTEMI) myocardial infarction; I50.32 Chronic diastolic (congestive) heart failure; I13.0 Hypertensive heart and chronic kidney disease with heart failure and stage 1 through stage 4 chronic kidney disease, or unspecified chronic kidney disease; Z79.01 Long term (current) use of anticoagulants; I25.10 Atherosclerotic heart disease of native coronary artery without angina pectoris; Z95.1 Presence of aortocoronary bypass graft; N18.3 Chronic kidney disease, stage 3 (moderate); E78.5 Hyperlipidemia, unspecified
CPT/HCPCS: 36415; 80048; 85025; 92960; 93005; 93010; 93306; 96365; 96366; 96375; J1160; J3490

== ENCOUNTER 2023-07-24 07:55 | Day surgery (SDC) | payer OTHER ==
[2023-07-24 08:15] LABS: #Eosinphils 0.1 thou/uL (0.0-0.7); #Monocytes 1.2 thou/uL (0.11-0.59); #Neutrophils 13.4 thou/uL (1.40-6.50); %Basophils 0.2 % (0.0-1.0); %Eosinophils 0.3 % (0.0-10.0); %Lymphocytes 16.8 % (21.0-51.0); Hematocrit 34.4 % (42.0-52.0); Hemoglobin 10.7 g/dL (14.0-18.0); Mean Corpuscular HGB CONC 31.1 g/dL (32.0-36.0); Mean Corpuscular Hemoglobin 27.9 pg (27.0-31.0); Mean Corpuscular Volume 89.6 fl (78.0-98.0); Mean Platelet Volume 9.4 fL (7.4-10.4); Platelet Count 189 10x3/uL (130-400); RBC Distribution Width 15.4 % (11.5-14.5); Red Blood Cell (RBC) Count 3.84 mill/uL (4.70-6.10); White Blood Cell (WBC) Count 17.8 10x3/uL (4.8-10.8)
[2023-07-24 08:32] LABS: INR-International Normal Ratio 1.1; PTT 36.1 sec (22.9-36.1); Prothrombin Time 14.6 sec (12.0-14.7)
[2023-07-24] MEDS ORDERED: Midazolam HCl 2 mg/2 ml Vial ONE (09:34)
[2023-07-24] MEDS ORDERED: Lidocaine 1% w/Epinephrine 1:100K 20 ML VIAL ONE (09:34)
[2023-07-24] MEDS ORDERED: fentaNYL 50 mcg/mL 1 mL Vial ONE (09:34)
[2023-07-24] MEDS ORDERED: Sodium Bicarbonate 2.5 MEQ/5 ML SDV ONE (09:35)
[2023-07-24 11:48] VITALS: BP 123/55; TEMP 98.6
== END 2023-07-24 11:20 | disposition home or self-care (01) ==
LOC: CT 07:55
PROVIDERS: ATTEND Urology
DX: R33.9 Retention of urine, unspecified (principal); D72.829 Elevated white blood cell count, unspecified; Z53.09 Procedure and treatment not carried out because of other contraindication; I48.91 Unspecified atrial fibrillation; I50.9 Heart failure, unspecified; N18.5 Chronic kidney disease, stage 5; Z79.82 Long term (current) use of aspirin; Z79.01 Long term (current) use of anticoagulants
CPT/HCPCS: 85025; 85610; 85730; 87086; J2250; J3010

== ENCOUNTER 2023-08-01 07:56 | Day surgery (SDC) | payer OTHER ==
[2023-08-01 08:15] LABS: #Eosinphils 0.4 thou/uL (0.0-0.7); #Monocytes 0.9 thou/uL (0.11-0.59); #Neutrophils 6.8 thou/uL (1.40-6.50); %Basophils 0.3 % (0.0-1.0); %Eosinophils 3.7 % (0.0-10.0); %Lymphocytes 29.8 % (21.0-51.0); %Monocytes 7.4 % (0.0-10.0); %Neutrophils 58.5 % (42.0-75.0); Hematocrit 33.4 % (42.0-52.0); Hemoglobin 10.4 g/dL (14.0-18.0); Mean Corpuscular HGB CONC 31.1 g/dL (32.0-36.0); Mean Corpuscular Hemoglobin 27.6 pg (27.0-31.0); Mean Corpuscular Volume 88.6 fl (78.0-98.0); Mean Platelet Volume 9.4 fL (7.4-10.4); Platelet Count 233 10x3/uL (130-400); RBC Distribution Width 15.1 % (11.5-14.5); Red Blood Cell (RBC) Count 3.77 mill/uL (4.70-6.10); White Blood Cell (WBC) Count 11.6 10x3/uL (4.8-10.8)
[2023-08-01 09:35] VITALS: BP 157/71; TEMP 98.4
[2023-08-01] MEDS ORDERED: Sodium Bicarbonate 2.5 MEQ/5 ML SDV ONE (10:08)
[2023-08-01] MEDS ORDERED: Lidocaine 1% PF 5 ML VIAL ONE (10:08)
[2023-08-01] MEDS ORDERED: Midazolam HCl 2 mg/2 ml Vial ONE (10:08)
[2023-08-01] MEDS ORDERED: fentaNYL 50 mcg/mL 1 mL Vial ONE (10:08)
[2023-08-01] MEDS ORDERED: Lidocaine 2% 6 ML (Jelly) SYR ONE (10:27)
[2023-08-01] MEDS ORDERED: Lidocaine 1% w/Epinephrine 1:100K 20 ML VIAL ONE (10:58)
[2023-08-01] MEDS ORDERED: FLU VACC QS2023(65UP)/MF59C/PF 60 MCG/0.5 ML SYRINGE IM ONE (12:00)
== END 2023-08-01 13:15 | disposition home or self-care (01) ==
LOC: CT 07:56
PROVIDERS: ATTEND Urology
DX: N40.1 Benign prostatic hyperplasia with lower urinary tract symptoms (principal); R33.9 Retention of urine, unspecified; D72.829 Elevated white blood cell count, unspecified; Z53.09 Procedure and treatment not carried out because of other contraindication; E11.51 Type 2 diabetes mellitus with diabetic peripheral angiopathy without gangrene; I13.10 Hypertensive heart and chronic kidney disease without heart failure, with stage 1 through stage 4 chronic kidney disease, or unspecified chronic kidney disease; N18.2 Chronic kidney disease, stage 2 (mild); E11.22 Type 2 diabetes mellitus with diabetic chronic kidney disease; I25.10 Atherosclerotic heart disease of native coronary artery without angina pectoris; C95.10 Chronic leukemia of unspecified cell type not having achieved remission; E78.5 Hyperlipidemia, unspecified; I48.0 Paroxysmal atrial fibrillation; N19 Unspecified kidney failure; Z79.01 Long term (current) use of anticoagulants; Z97.8 Presence of other specified devices; K21.9 Gastro-esophageal reflux disease without esophagitis; Z79.82 Long term (current) use of aspirin; Z79.899 Other long term (current) drug therapy; Z95.1 Presence of aortocoronary bypass graft; Z90.49 Acquired absence of other specified parts of digestive tract; Z98.61 Coronary angioplasty status; Z88.0 Allergy status to penicillin
CPT/HCPCS: 51102; 77002; 85025; C2627; 36415; J2250; J3010

== ENCOUNTER 2023-08-06 05:00 | Inpatient (IN) | payer OTHER ==
[2023-08-06 05:45] LABS: #Basophils 0.1 thou/uL (0.0-0.2); #Eosinphils 0.5 thou/uL (0.0-0.7); #Monocytes 0.9 thou/uL (0.11-0.59); #Neutrophils 9.1 thou/uL (1.40-6.50); %Basophils 0.4 % (0.0-1.0); %Eosinophils 3.2 % (0.0-10.0); %Lymphocytes 24.7 % (21.0-51.0); %Monocytes 6.7 % (0.0-10.0); %Neutrophils 64.6 % (42.0-75.0); Hemoglobin 9.4 g/dL (14.0-18.0); Mean Corpuscular HGB CONC 31.3 g/dL (32.0-36.0); Mean Corpuscular Hemoglobin 27.8 pg (27.0-31.0); Mean Corpuscular Volume 88.8 fl (78.0-98.0); Mean Platelet Volume 9.6 fL (7.4-10.4); Platelet Count 234 10x3/uL (130-400); RBC Distribution Width 15.1 % (11.5-14.5); Red Blood Cell (RBC) Count 3.38 mill/uL (4.70-6.10); White Blood Cell (WBC) Count 14.1 10x3/uL (4.8-10.8)
[2023-08-06 05:59] LABS: INR-International Normal Ratio 1.2; Prothrombin Time 14.9 sec (12.0-14.7)
[2023-08-06 06:00] LABS: PTT 39.7 sec (22.9-36.1)
[2023-08-06 06:32] LABS: ALT (SGPT) 9 U/L (8-55); AST (SGOT) 11 U/L (5-34); Albumin 3.2 g/dL (3.4-4.8); Alkaline Phosphatase 60 U/L (40-110); Anion Gap 10 mmol/L (10-20); BUN (Urea Nitrogen) 53 mg/dL (8.4-25.7); Bilirubin, Total 0.3 mg/dL (0.2-1.2); Calc. Creatinine Clearance 0 mL/min (70-130); Calcium 8.4 mg/dL (7.8-10.44); Carbon Dioxide 23 mmol/L (23-31); Chloride 106 mmol/L (98-107); Estimated GFR 17; Globulin 2.2 g/dL (2.4-3.5); Glucose 111 mg/dL (83-110); Potassium 4.7 mmol/L (3.5-5.1); Protein, Total 5.4 g/dL (5.8-8.1); Sodium 134 mmol/L (136-145)
[2023-08-06 07:25] LABS: Hematocrit 30.7 % (42.0-52.0); Hemoglobin 9.5 g/dL (14.0-18.0)
[2023-08-06] MEDS ORDERED: Rocuronium Bromide 10 MG/ML (10ML VIAL) ONE (08:52)
[2023-08-06] MEDS ORDERED: Lidocaine 2% PF 5 ML VIAL ONE (08:52)
[2023-08-06] MEDS ORDERED: PROPOFOL 20 ML ONE (08:52)
[2023-08-06] MEDS ORDERED: fentaNYL 50 mcg/mL 1 mL Vial ONE (08:53)
[2023-08-06] MEDS ORDERED: cefTRIAXone\\ROCEPHIN 2 GM in Sodium Chloride 0.9% 100 ML IVPB SCH (09:00)
[2023-08-06] MEDS ORDERED: Sodium Chloride 0.9% 100 ML ONE (09:03)
[2023-08-06] MEDS ORDERED: cefTRIAXone (ROCEPHIN) 2 GM VIAL ONE (09:03)
[2023-08-06] MEDS ORDERED: PHENYLEPHRINE-NS 100 MCG/ML 10 ML SYRINGE ONE (09:50)
[2023-08-06] MEDS ORDERED: Triple Antibiotic Oint 1 GM Packet TOP SCH (13:00)
== END 2023-08-06 14:30 | disposition home or self-care (01) | DRG 698 ==
LOC: ERS 05:00 → ERHOLD 08:12
PROVIDERS: ADMIT Internal Medicine; ATTEND Internal Medicine
PROC: 0H5AXZZ Destruction of Inguinal Skin, External Approach (ICD-10-PCS; principal; 2023-08-06)
PROC: 0TJB8ZZ Inspection of Bladder, Via Natural or Artificial Opening Endoscopic (ICD-10-PCS; 2023-08-06)
DX: T83.83XA Hemorrhage due to genitourinary prosthetic devices, implants and grafts, initial encounter (principal); N18.6 End stage renal disease; I13.2 Hypertensive heart and chronic kidney disease with heart failure and with stage 5 chronic kidney disease, or end stage renal disease; C95.10 Chronic leukemia of unspecified cell type not having achieved remission; E78.5 Hyperlipidemia, unspecified; I48.0 Paroxysmal atrial fibrillation; K21.9 Gastro-esophageal reflux disease without esophagitis; E11.22 Type 2 diabetes mellitus with diabetic chronic kidney disease; I50.9 Heart failure, unspecified; I25.10 Atherosclerotic heart disease of native coronary artery without angina pectoris; Z90.49 Acquired absence of other specified parts of digestive tract; Z95.1 Presence of aortocoronary bypass graft; Z87.891 Personal history of nicotine dependence; Z88.0 Allergy status to penicillin; Z79.899 Other long term (current) drug therapy; E11.51 Type 2 diabetes mellitus with diabetic peripheral angiopathy without gangrene; N40.1 Benign prostatic hyperplasia with lower urinary tract symptoms
CPT/HCPCS: 36415; 80053; 85025; 85610; 85730; 86850; 86900; 86901; 99284; J0696; J2001; J2704; J3010; J3490

== ENCOUNTER 2023-08-08 09:53 | Outpatient (CLI) | payer OTHER | END 2023-08-08 09:54 | disposition home or self-care (01) | LOC: SCSCT 09:53 | PROVIDERS: ATTEND Thoracic Surgery (Cardiothoracic Vascular Surgery) | DX: I65.23 Occlusion and stenosis of bilateral carotid arteries (principal); I65.03 Occlusion and stenosis of bilateral vertebral arteries | CPT/HCPCS: 70490 ==